=== PATIENT | female | born 1985 | race Caucasian/White ===

== ENCOUNTER 2016-07-29 12:50 | Emergency (ER) | payer OTHER ==
[~2016-07-29] VITALS: Ht 170.2 cm; Wt 72.5 kg
[~2016-07-29 12:50] MED LIST: CHROMAGEN,1 CAPSULE PO; MOTRIN800 MG PO; Ortho Tri-Cyclen 28, PO; PERCOCET 5/31 TABLET PO; PROCARDIA10 MG PO
[2016-07-29 13:24] LABS: MCH 28.7 PG (29.0-34.0); MCHC 33.7 G/DL (30.0-36.0); MCV 85.2 FL (83-99); MEAN PLAT.VOLUME 9.9 uM^3 (9.5-12.4); PLATELET COUNT 260 K/uL (156-360); RBC DIS.WIDTH-SD 39.9 % (39-53); RED BLOOD COUNT 4.81 M/uL (3.80-5.20); WHITE BLOOD COUNT 5.1 K/uL (4.1-10.2)
[2016-07-29 13:34] LABS: CHLORIDE 101 mEq/L (99-109); POTASSIUM 3.4 mEq/L (3.7-5.4); SODIUM 137 mEq/L (136-147)
[2016-07-29 13:36] LABS: GLUCOSE 76 mg/dL (70-99)
[2016-07-29 13:38] LABS: ANION GAP 13 MEQ/L (2-14)
[2016-07-29 13:40] LABS: GFR ESTIMATE (CALCULATED) > 59 mL/min/
[2016-07-29 13:41] LABS: UREA NITROGEN (BUN) 10 mg/dL (9-23)
[2016-07-29 13:44] LABS: TROP-I INTERPRETATION NEGATIVE; TROPONIN-I < 0.01 ng/mL (0.0-0.30)
[2016-07-29 14:10] LABS: D-DIMER ELISA 0.37 mg/L FEU (< 0.57)
[2016-07-29 14:49] LABS: INFLUENZA A VIRAL ANTIGEN NEGATIVE; INFLUENZA B VIRAL ANTIGEN POSITIVE
[2016-07-29 15:33] LABS: TROP-I INTERPRETATION NEGATIVE; TROPONIN-I < 0.01 ng/mL (0.0-0.30)
[2016-07-29] MEDS ORDERED: TAMIFLU75 MG PO (16:25)
[2016-07-29] MEDS ORDERED: MOTRIN600 MG PO (16:25)
[2016-07-29] MEDS ORDERED: TRAMADOL HCL50 MG PO (16:25)
[2016-07-29 16:50] VITALS: BP 134/86
== END 2016-07-29 17:00 | disposition home or self-care (01) ==
LOC: EME 12:50
PROVIDERS: Physician Assistant
DX: J10.1 Influenza due to other identified influenza virus with other respiratory manifestations (principal); R07.9 Chest pain, unspecified
CPT/HCPCS: 71020; 80048; 84484; 85027; 85379; 87480; 87502; 87510; 87651 90; 87660; 93005; J1885

== ENCOUNTER 2016-11-02 15:04 | Emergency (ER) | payer OTHER ==
[~2016-11-02] VITALS: Ht 170.2 cm; Wt 62.4 kg
[~2016-11-02 15:04] MED LIST changes: +MOTRIN600 MG PO; +TAMIFLU75 MG PO; +TRAMADOL HCL50 MG PO
[2016-11-02 15:40] LABS: HEMATOCRIT 44.3 % (36.0-46.0); MCH 28.8 PG (29.0-34.0); MCHC 33.9 G/DL (30.0-36.0); PLATELET COUNT 274 K/uL (156-360); RBC DIS.WIDTH-CV 13.1 % (11.8-14.6); RED BLOOD COUNT 5.21 M/uL (3.80-5.20); WHITE BLOOD COUNT 6.7 K/uL (4.1-10.2)
[2016-11-02 16:21] LABS: ALKALINE PHOSPHATASE 54 IU/L (3-129); ANION GAP 9 MEQ/L (2-14); CHLORIDE 104 MEQ/L (99-109); GFR ESTIMATE (CALCULATED) > 59 mL/min/; GLUCOSE 81 mg/dL (70-99); LIPASE 9 U/L (1.0-51.0); POTASSIUM 3.5 MEQ/L (3.7-5.4); SAMPLE HEMOLYSIS CHECK 0; SAMPLE ICTERIC CHECK 0; SAMPLE LIPEMIA CHECK 0; SODIUM 141 MEQ/L (136-147); TOTAL BILIRUBIN 1.5 MG/DL (0.0-1.0); UREA NITROGEN (BUN) 9 mg/dL (9-23)
[2016-11-02 18:33] LABS: ADD MIUA? YES; BILIRUBIN NEGATIVE; BLOOD SMALL; COLOR YELLOW ((YELLOW)); GLUCOSE (STRIP) NEGATIVE; KETONES 20; LEUKOCYTES LARGE; NITRITE POSITIVE; PROTEIN (STRIP) 30; UROBILINOGEN 0.2 MG/DL (0.2-1.0)
[2016-11-02 18:51] LABS: BACTERIA RARE /HPF; EPITHELIAL CELLS RARE /HPF; MUCUS TRACE /LPF; RED BLOOD CELLS 15-20 /HPF (0-5); WHITE BLOOD CELLS TNTC /HPF (0-5)
[2016-11-02 18:56] LABS: SPECIFIC GRAVITY 1.057 (1.000-1.030)
[2016-11-02] MEDS ORDERED: KEFLEX500 MG PO (19:01)
[2016-11-02] MEDS ORDERED: ZOFRAN ODT4 MG PO (19:01)
[2016-11-02] MEDS ORDERED: PERCOCET 5/31 TABLET PO (19:01)
[2016-11-02 19:39] VITALS: BP 153/107
== END 2016-11-02 19:42 | disposition home or self-care (01) ==
LOC: EME 15:04
PROVIDERS: Nurse Practitioner Family
DX: N12 Tubulo-interstitial nephritis, not specified as acute or chronic (principal); K76.9 Liver disease, unspecified
CPT/HCPCS: 74177; 80053; 81003; 83690; 85027; 87077; 87086; 87186; 99281; 99285; J0696; J1885; J2270; J2405; J7030; J7050

== ENCOUNTER 2017-02-25 16:44 | Observation (INO) | payer OTHER ==
[~2017-02-25] VITALS: Ht 170.2 cm; Wt 63.2 kg
[~2017-02-25 16:44] MED LIST changes: +KEFLEX500 MG PO; +ZOFRAN ODT4 MG PO
[2017-02-25 17:36] LABS: HEMATOCRIT 38.8 % (36.0-46.0); MCH 29.5 PG (29.0-34.0); MCV 86.8 FL (83-99); MEAN PLAT.VOLUME 9.7 uM^3 (9.5-12.4); PLATELET COUNT 277 K/uL (156-360); RBC DIS.WIDTH-CV 12.7 % (11.8-14.6); RED BLOOD COUNT 4.47 M/uL (3.80-5.20)
[2017-02-25 17:47] LABS: CHLORIDE 107 mEq/L (99-109); POTASSIUM 3.6 mEq/L (3.7-5.4); SODIUM 144 mEq/L (136-147)
[2017-02-25 17:49] LABS: GLUCOSE 65 mg/dL (70-99)
[2017-02-25 17:50] LABS: ANION GAP 9 MEQ/L (2-14)
[2017-02-25 17:53] LABS: GFR ESTIMATE (CALCULATED) > 59 mL/min/; UREA NITROGEN (BUN) 12 mg/dL (9-23)
[2017-02-25 17:57] LABS: TROP-I INTERPRETATION NEGATIVE; TROPONIN-I < 0.01 ng/mL (0.0-0.30)
[2017-02-25 18:25] LABS: QUANTITATIVE HCG < 4.0 MIU/ML
[2017-02-25 18:41] LABS: D-DIMER ELISA < 150.00 ng/mLDDU (<230)
[2017-02-25 20:44] LABS: TROP-I INTERPRETATION NEGATIVE; TROPONIN-I < 0.01 ng/mL (0.0-0.30)
[2017-02-25] MEDS ORDERED: ACZONE60 G1 TP (22:08)
[2017-02-25] MEDS ORDERED: ADIPEX-P37.5 M1 PO (22:09)
[2017-02-25 23:49] LABS: ADD MEDTOX COMMENT Y; AMPHETAMINE PRESUMPTIVE POSITIVE (500 ng/mL); BARBITURATES NEGATIVE (200 ng/mL); BENZODIAZEPINES PRESUMPTIVE POSITIVE (150 ng/mL); COCAINE NEGATIVE (150 ng/mL); INTERNAL CONTROLS VALID? YES; METHADONE NEGATIVE (200 ng/mL); METHAMPHETAMINE NEGATIVE (500 ng/mL); OPIATES (MORPHINE) NEGATIVE (100 ng/mL); OXYCODONE NEGATIVE (100 ng/mL); PHENCYCLIDINE NEGATIVE (25 ng/mL); PROPOXYPHENE NEGATIVE (300 ng/mL); THC CANNABINOIDS NEGATIVE (50 ng/mL); TRICYCLIC ANTIDEPRESSANTS NEGATIVE (300 ng/mL)
[2017-02-26 00:20] VITALS: BP 159/104
[2017-02-26 02:53] LABS: BENZODIAZEPINES QUANT VALUE 0 NG/ML; BENZODIAZEPINES, URINE SCREEN Negative (200 ng/mL)
[2017-02-26 03:21] VITALS: BP 91/55
[2017-02-26 03:37] LABS: CHLORIDE 108 mEq/L (99-109); POTASSIUM 4.2 mEq/L (3.7-5.4); SODIUM 140 mEq/L (136-147)
[2017-02-26 03:40] LABS: GLUCOSE 101 mg/dL (70-99)
[2017-02-26 03:41] LABS: ANION GAP 7 MEQ/L (2-14); TOTAL BILIRUBIN 0.6 mg/dL (0.0-1.0)
[2017-02-26 03:43] LABS: ALKALINE PHOSPHATASE 43 IU/L (3-129); GFR ESTIMATE (CALCULATED) > 59 mL/min/
[2017-02-26 03:44] LABS: UREA NITROGEN (BUN) 9 mg/dL (9-23)
[2017-02-26 03:46] LABS: TROP-I INTERPRETATION NEGATIVE; TROPONIN-I < 0.01 ng/mL (0.0-0.30)
[2017-02-26 07:30] VITALS: BP 122/81
[2017-02-26 09:21] LABS: TROP-I INTERPRETATION NEGATIVE; TROPONIN-I < 0.01 ng/mL (0.0-0.30)
[2017-02-26 11:15] VITALS: BP 159/99
== END 2017-02-26 15:30 | disposition home or self-care (01) ==
LOC: EME 16:44 → 5WEST 23:19 → EDOF 23:19 → ENRESERV 23:19 → ENPENDDIS 02-26 → 5WEST 02-26 00:16
PROVIDERS: Physician Assistant
DX: R07.89 Other chest pain (principal); M79.602 Pain in left arm; R03.0 Elevated blood-pressure reading, without diagnosis of hypertension; Z79.899 Other long term (current) drug therapy; Z87.442 Personal history of urinary calculi; Z82.49 Family history of ischemic heart disease and other diseases of the circulatory system
CPT/HCPCS: 71020; 71275; 80048; 80053; 84484; 84702; 84999; 85027; 85379; 93005; 99281; 99285; G0378; J1885; J2060; J7030

== ENCOUNTER 2017-05-09 16:20 | Emergency (ER) | payer OTHER ==
[~2017-05-09] VITALS: Ht 170.2 cm; Wt 61.8 kg
[~2017-05-09 16:20] MED LIST changes: +ACZONE60 G1 TP; +ADIPEX-P37.5 M1 PO
[2017-05-09 17:24] LABS: HEMATOCRIT 38.5 % (36.0-46.0); HEMOGLOBIN 13.2 G/DL (11.9-15.5); MCH 29.8 PG (29.0-34.0); MCHC 34.3 G/DL (30.0-36.0); MCV 86.9 FL (83-99); PLATELET COUNT 296 K/uL (156-360); RBC DIS.WIDTH-CV 13.1 % (11.8-14.6); RED BLOOD COUNT 4.43 M/uL (3.80-5.20); WHITE BLOOD COUNT 7.1 K/uL (4.1-10.2)
[2017-05-09 17:38] LABS: CHLORIDE 106 mEq/L (99-109); POTASSIUM 4.2 mEq/L (3.7-5.4); SODIUM 140 mEq/L (136-147)
[2017-05-09 17:39] LABS: GLUCOSE 89 mg/dL (70-99)
[2017-05-09 17:43] LABS: CREATININE 0.7 mg/dL (0.6-1.3); GFR ESTIMATE (CALCULATED) > 59 mL/min/
[2017-05-09 17:44] LABS: UREA NITROGEN (BUN) 13 mg/dL (9-23)
[2017-05-09 19:05] LABS: LIPASE 23 U/L (1.0-51.0)
[2017-05-09 19:11] LABS: QUANTITATIVE HCG < 4.0 MIU/ML
[2017-05-09 19:25] LABS: APPEARANCE SL.HAZY ((CLEAR)); BILIRUBIN NEGATIVE; BLOOD NEGATIVE; COLOR YELLOW ((YELLOW)); GLUCOSE (STRIP) NEGATIVE; KETONES NEGATIVE; LEUKOCYTES NEGATIVE; NITRITE NEGATIVE; PROTEIN (STRIP) NEGATIVE; SPECIFIC GRAVITY 1.021 (1.000-1.030); UROBILINOGEN 0.2 MG/DL (0.2-1.0)
[2017-05-09 19:30] LABS: BACTERIA RARE /HPF; EPITHELIAL CELLS 1+ /HPF; MUCUS TRACE /LPF; RED BLOOD CELLS 0-5 /HPF (0-5); UCUL ADDED? NO; WHITE BLOOD CELLS 0-5 /HPF (0-5)
[2017-05-09 19:59] LABS: ALBUMIN 4.1 g/dL (3.2-4.8)
[2017-05-09 20:02] LABS: TOTAL PROTEIN 6.9 g/dL (6.4-8.3)
[2017-05-09 20:04] LABS: TOTAL BILIRUBIN 0.8 mg/dL (0.0-1.0)
[2017-05-09 20:05] LABS: ALKALINE PHOSPHATASE 61 IU/L (3-129)
[2017-05-09 20:07] LABS: AST (GOT) 19 IU/L (2-34); DIRECT BILIRUBIN 0.3 mg/dL (0.0-0.3)
[2017-05-09 20:08] LABS: ALT (GPT) 28 IU/L (3-49)
[2017-05-09] MEDS ORDERED: ZOFRAN ODT4 MG PO (20:34)
[2017-05-09] MEDS ORDERED: ULTRAM50 MG PO (20:34)
[2017-05-09 21:00] VITALS: BP 165/96
== END 2017-05-09 21:04 | disposition home or self-care (01) ==
LOC: EME 16:20
DX: R10.11 Right upper quadrant pain (principal); N20.0 Calculus of kidney; N83.202 Unspecified ovarian cyst, left side; J06.9 Acute upper respiratory infection, unspecified; Z87.442 Personal history of urinary calculi; Z90.49 Acquired absence of other specified parts of digestive tract; Z90.710 Acquired absence of both cervix and uterus
CPT/HCPCS: 74176; 80048; 80076; 81003; 83690; 84702; 85027; 99281; 99284; J1885